=== PATIENT | male | born 1970 | race Two or more races ===

== ENCOUNTER 2016-06-30 12:31 | Emergency (ER) | payer MEDICAID ==
[2016-06-30 12:54] VITALS: TEMP 97.7; BMI 24.3
[2016-06-30] MEDS ORDERED: OXYCODONE HCL 5 MG TABLET PO ONE (13:08)
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
[2016-06-30 15:23] VITALS: BP 148/89; PULSE 105
== END 2016-06-30 15:22 | disposition home or self-care (01) ==
LOC: EDMC 12:31
DX: M47.20 Other spondylosis with radiculopathy, site unspecified (principal); V49.9XXA Car occupant (driver) (passenger) injured in unspecified traffic accident, initial encounter; Y93.9 Activity, unspecified; Y92.410 Unspecified street and highway as the place of occurrence of the external cause
CPT/HCPCS: 71020; 72050; 72070; 99282; J3490